=== PATIENT | male | born 1995 | race Caucasian/White ===

== ENCOUNTER → 2017-09-11 | Outpatient (CLI) | payer BC, MEDICARE | LOC: M WUC 14:30 | DX: R76.11 Nonspecific reaction to tuberculin skin test without active tuberculosis (principal) | CPT/HCPCS: 71046 ==

== ENCOUNTER 2019-01-20 23:49 | Day surgery (SDC) | payer BC, MEDICARE ==
[~2019-01-20] VITALS: Ht 182.9 cm; Wt 74.4 kg
[2019-01-21] VITALS (7 sets, daily range): BP systolic 126–171; BP diastolic 76–87
[2019-01-21 06:23] LABS: HEMATOCRIT 44.5 % (42.0-52.0); MEAN CORPUSCULAR HEMOGLOBIN 29.5 pg (27.0-33.0); MEAN CORPUSCULAR HGB CONC 33.7 g/dl (32.0-36.5); MEAN CORPUSCULAR VOLUME 87.6 fl (80.0-96.0); PLATELET COUNT, AUTOMATED 339 10^3/uL (150-450); RED BLOOD COUNT 5.08 10^6/uL (4.30-6.10); WHITE BLOOD COUNT 16.7 10^3/uL (4.0-10.0)
[2019-01-21 06:56] LABS: ALBUMIN 3.8 GM/DL (3.2-5.2); ALT/SGPT 23 U/L (12-78); BILIRUBIN,TOTAL 0.8 MG/DL (0.2-1.0); BLOOD UREA NITROGEN 9 MG/DL (7-18); CALCIUM LEVEL 8.5 MG/DL (8.5-10.1); CARBON DIOXIDE LEVEL 29 MEQ/L (21-32); CHLORIDE LEVEL 106 MEQ/L (98-107); GLOMERULAR FILTRATION RATE > 60.0 (>60); GLUCOSE, FASTING 118 MG/DL (70-100); POTASSIUM SERUM 3.7 MEQ/L (3.5-5.1); SODIUM LEVEL 140 MEQ/L (136-145)
--- NOTE | 2019-01-21 15:14 | HPE ---
DATE OF ADMISSION: 01/21/2019 CHIEF COMPLAINT: Right leg pain. HISTORY OF PRESENT ILLNESS: The patient was wrestling with a friend of his a few hours ago. The friend fell on his right leg, and he went to the [place] [facility] due to immediate pain and deformity about the right tibia with inability to weight bear. There are no other active complaints. The patient was ultimately transferred to [facility], where I did evaluate him. He is complaining again of pain isolated to the fracture site in the right tibia. No other active complaints. PAST MEDICAL HISTORY: Denies. PAST SURGICAL HISTORY: When he was a child he underwent anesthesia for a shoulder injury. MEDICATIONS: None. ALLERGIES: None. SOCIAL HISTORY: He lives in [place] with his mother and father. He is a smoker. PHYSICAL EXAMINATION: Awake, alert and oriented times three, well-appearing young man in no acute distress. Head is normocephalic, atraumatic. Extraocular muscles are intact. Cardiovascular: Regular rate and rhythm. Pulmonary: No increased work of breathing. Abdomen is soft, nontender, and nondistended. Focused examination of the right lower extremity. He came in an [place] wrap with Webril immobilization. This was removed. There is obvious deformity. Low-grade swelling about the distal tibial fracture site. The skin in this area is intact. Distally he has 2+ dorsalis pedis pulse with less than 2 seconds capillary refill and sensation intact to light touch in all of his toes. There is no pain with passive stretch, and he does have intact flicker dorsiflexion and plantar flexion of his foot and ankle, somewhat limited due to pain and guarding. The ipsilateral foot and knee are nontender and grossly atraumatic. X-rays from outside facility the right leg show a distal one-third spiral tibia fracture with a more proximal associated fibular fracture. ASSESSMENT: Right closed tibia and fibula fracture. PLAN: He was placed in a well-padded long L and U splint split spanning his knee. This was well tolerated, and he the remained fully neurovascular intact after. He will be admitted at this point. Nothing by mouth. Give him medication for pain control. I did discuss with him the risks and benefits of operative and nonoperative management, and they elected to go forward with surgical intervention, which will likely be performed later today, most likely intramedullary nail, and I will discuss that with the oncoming orthopedic team. In the meantime, monitor for signs of compartment syndrome and elevate as well to control swelling.
[2019-01-21] MEDS ORDERED: LIDOCAINE 2% INJ 100 MG/5 ML SDV (FOR ANES.) As Ordered ONE (15:45)
[2019-01-21] MEDS ORDERED: fentaNYL 100 MCG/2 ML INJECTION (J3010) As Ordered ONE (15:46)
[2019-01-21] MEDS ORDERED: ONDANSETRON 4MG/2ML VIAL (J2405) As Ordered ONE ×2 (15:46→19:08)
[2019-01-21] MEDS ORDERED: dexameTHASONE 4 MG/ML 1ML VIAL (J1100) As Ordered ONE (15:46)
[2019-01-21] MEDS ORDERED: MIDAZOLAM INJ 2 MG/2 ML VIAL (J2250) As Ordered ONE (15:46)
[2019-01-21] MEDS ORDERED: BUPIVACAINE/DEXTROSE 0.75% 2 ML AMP As Ordered ONE (16:01)
[2019-01-21] MEDS ORDERED: PROPOFOL 500 MG/50 ML VIAL As Ordered ONE (16:02)
[2019-01-21] MEDS ORDERED: LIDOCAINE 2% JELLY 6 ML SYRINGE As Ordered ONE (17:02)
[2019-01-21] MEDS ORDERED: PERCOCET 5MG/325MG TAB As Ordered ONE (19:08)
[2019-01-21] MEDS ORDERED: ONDANSETRON 4MG/2ML VIAL (J2405) IV PRN (19:15)
[2019-01-21] MEDS ORDERED: fentaNYL 100 MCG/2 ML INJECTION (J3010) IV PRN (19:15)
[2019-01-21] MEDS ORDERED: NORCO, ANEXSIA 5/325MG TABLET (HYDROcodone/ACETAMINOPHEN) PO PRN (19:15)
[2019-01-21] MEDS ORDERED: LR 1,000 ML IV SCH (19:15)
--- NOTE | 2019-01-21 21:04 | REP ---
Clinical: Status post open reduction and fixation. Technique: AP and lateral views of the right tibia / fibula. Findings: Intramedullary mara spans in the tibial shaft. Oblique fracture of the distal tibial diaphysis demonstrate satisfactory alignment. Fracture of the proximal fibula is noted. Overlying postsurgical changes. Impression: Status post open reduction and fixation. Electronically Signed by Kiko Lewis MD 01/21/2019 08:55 P
[2019-01-22 00:15] VITALS: BP 136/87
[2019-01-22 02:00] VITALS: BP 139/88
[2019-01-22 06:00] VITALS: BP 138/88
[2019-01-22] MEDS ORDERED: ASPI-1 PO (06:38)
[2019-01-22] MEDS ORDERED: PERC5TAB12 PO (06:38)
--- NOTE | 2019-01-22 09:17 | RO ---
DATE OF PROCEDURE: 01/21/2019 PREOPERATIVE DIAGNOSIS: Right distal tibial shaft fracture. POSTPROCEDURE DIAGNOSIS: Right distal tibial shaft fracture. PROCEDURE PERFORMED: Right tibia closed reduction intramedullary nail fixation. SURGEON: Dr. Basil Dash BINDERY HELPER: Hannah Doe CRNA ANESTHESIA PROVIDER: Dr. Alvarado ANESTHESIA: Single shot spinal. ANTIBIOTICS: 2 grams Ancef given within 1 hour of incision. IMPLANTS USED: [employer]ynthe[employer] Expert tibial nail 10 mm x 375 mm in length with two proximal interlocking screws measuring 46 mm and 72 mm in length, three distal interlocking screws measuring 46 mm, 34 mm and 42 mm in length all by 5 mm width. ESTIMATED BLOOD LOSS: 150 mL. MATERIALS SENT TO LAB: None. COMPLICATIONS: None. INDICATIONS FOR PROCEDURE: Wong Rose is a 23-year-old male who was rough housing with a friend yesterday sustaining a twisting injury to his right lower extremity resulting in a distal third tibial shaft fracture that did not have intra-articular extension. The patient was seen by my partner and passed off to me for definitive fixation. I discussed with the patient and his parents, who are his primary caregivers and provided informed consent given his underlying developmental disability. We discussed the risks, benefits, indications, alternatives of operative versus nonoperative management. I recommended open versus closed reduction and intramedullary nail fixation. They expressed understanding and provided written informed consent. I counseled them that I am his operating surgeon and his followup care will be conducted by [facility]. They expressed understanding with this arrangement and elected to proceed. INTRAOPERATIVE FINDINGS: Anatomic reduction and stable fixation. After completion, the patient had a stable knee examination after fixation of the tibia. DESCRIPTION OF PROCEDURE: The patient was positively identified in the preop holding area, surgical site was marked. He was then brought to the operating room where he was given a single shot spinal anesthesia. He was positioned supine on a regular table with all bony prominences appropriately padded. Sequential compression device (SCD) placed on nonoperative extremity for deep vein thrombosis (DVT) prophylaxis. He was then prepped and draped in the usual sterile fashion. A final time-out was performed. I began by making a 3 cm incision about one fingerbreadths proximal to the superior pole of the patella. I dissected through skin and subcutaneous tissue, identified the quadriceps tendon layer, sharply dissected through the quadriceps tendon layer and accessed the knee joint. The starting guide pin was inserted into the knee with the protective sleeve to protect patellofemoral articular cartilage. It was then secured in place using an accessory threaded guide pin into the femur. I then introduced the 3.2 mm guidewire that was placed just medial to lateral tibial spine and at the anterior edge of the subchondral bone on lateral and the tibia was advanced to appropriate depth followed by placement of the opening reamer. I then introduced the ball-tip guidewire down to the level of the fracture. At this point, I then made two accessory incisions, one medially and one laterally on either side of the fracture to introduce the periarticular reduction clamp was able to obtain anatomic reduction of the fracture. The guidewire was then passed distally past the fracture site and to the level of the physeal scar of the tibia, centered on AP and lateral fluoroscopic imaging. I then made a single pass with an 11.5 mm reamer maintaining anatomic reduction. This was then followed by placement of the nail to an appropriate depth. Once the nail was placed, the guidewire was removed. I then placed two proximal interlocking screws using the standard product safety technician's guide. After this was completed, I then placed a single distal interlocking screw from anterior to posterior using standard perfect marshall technique. At this point, given proximal and distal fixation, the periarticular reduction clamp was removed. I then placed two additional distal interlocking screws distal to the fracture site using standard perfect marshall technique. At this point, final fluoroscopic images were obtained confirming anatomic reduction and appropriately placed hardware. I then thoroughly irrigated the knee joint and all wounds with normal saline. The quadriceps tendon layer was closed with a running 0 Vicryl suture. Subcutaneous layer for the quadriceps tendon was closed with buried interrupted 2-0 Vicryl suture, followed by sully for the skin. The stab incisions for all distal interlocking screws and the reduction forceps were closed with sully. Sterile dressings were applied. This ended the procedure. I performed an exam under anesthesia of the knee to confirm no ligamentous injury associated with his tibial fracture. This ended the procedure. I was present and scrubbed in for all critical portions of the case. POSTOPERATIVE PLAN: The patient will return to the hospital floor. He will be weightbearing as tolerated to the right lower extremity. He will undergo compartment checks. He will be discharged home when criteria met.
--- NOTE | 2019-01-22 09:41 | REP ---
C-ARM VIEWS RIGHT LOWER LEG: Multiple C-arm views right lower leg performed. Intramedullary mara is placed on the tibia affixed by metallic screws. Structures are well aligned. 3 minutes 45 seconds of fluoroscopy time utilized. Electronically Signed by Drew Doe MD 01/26/2019 09:53 A
[2019-01-22 10:00] VITALS: BP 149/79
== END 2019-01-22 11:05 | disposition home or self-care (01) ==
LOC: M SDC 23:49 → M MS5PR 01-21 01:25 → UNDOADMIN 01-21 01:25 → M MS5PR 01-21 02:13 → M SDC 01-22 11:05 → UNDODISIN 01-22 11:05
DX: S82.391A Other fracture of lower end of right tibia, initial encounter for closed fracture (principal); W50.0XXA Accidental hit or strike by another person, initial encounter; Y92.009 Unspecified place in unspecified non-institutional (private) residence as the place of occurrence of the external cause; Y99.9 Unspecified external cause status; Y93.83 Activity, rough housing and horseplay
CPT/HCPCS: 27759; 36415; 73590; 76000; 80053; 85027; 96361; 96374; 96376; 97116; 97161; 97530; C1713; J0690; J1100; J2250; J2270; J2405; J3010